=== PATIENT | female | born 1970 | race Caucasian/White ===

== ENCOUNTER 2019-09-24 06:18 | Inpatient (IN) ==
[2019-09-24] MEDS ORDERED: ASPIRIN ONE (06:36)
[2019-09-24] MEDS ORDERED: ASPIRIN PO ONE (06:39)
[2019-09-24 06:56] LABS: BASO% 0.8 % (0.0-0.8); EOS# 0.41 X1000 (0.0-0.7); EOS% 3.4 % (0.0-10.0); HEMATOCRIT 40.4 % (37.0-47.0); HEMOGLOBIN 13.2 g/dL (12.0-16.0); IMM GRAN# 0.02 X1000 (0.0-0.04); IMM GRAN% 0.2 % (0.0-0.5); LYMPH% 23.4 % (20.5-51.1); MCH 31.2 PG (27-31); MCHC 32.7 g/dL (33-37); MCV 95.5 FL (81-99); MONO# 0.85 X1000 (0.11-0.59); MONO% 7.1 % (1.7-9.3); MPV 10.8 FL (7.4-10.4); NEUT# 7.77 X1000 (1.4-6.5); NEUT% 65.1 % (42.2-75.2); PLT 293 X1000 (130-400); RBC 4.23 XMIL (4.2-5.4); WBC 11.95 X1000 (4.8-10.8)
--- NOTE | 2019-09-24 06:59 | EKG Report ---
Test Performed on : 09/24/2019 06:26:35 AM Test Reason : CP Blood Pressure : / mmHG Vent. Rate : 111 BPM Atrial Rate : 111 BPM P-R Int : 122 ms QRS Dur : 088 ms QT Int : 328 ms P-R-T Axes : 073 078 044 degrees QTc Int : 446 ms Sinus tachycardia. Nonspecific ST abnormality Abnormal ECG When compared with ECG of 24-SEP-2017 00:51, ST now depressed in Inferior leads Unconfirmed Result
[2019-09-24 07:00] LABS: INR 1.08; PROTIME 14.6 Seconds (11.0-16.0)
[2019-09-24 07:01] LABS: PTT 28.6 Seconds (22.3-41.8)
[2019-09-24 07:26] LABS: AGAP 20; ALKALINE PHOSPHATASE 94 U/L (32-104); BUN 29 mg/dL (8-22); CHLORIDE 101 mmol/L (98-107); CK PROFILE 35 U/L (24-173); COSMO 291; CREATININE 0.8 mg/dL (0.5-0.9); ESTIMATED GFR > 60; GLUCOSE 101 mg/dL (70-104); GOT 18 U/L (10-30); GPT 20 U/L (10-36); POTASSIUM 3.8 mmol/L (3.5-5.1); SODIUM 143 mmol/L (136-145); TCO2 22 mmol/L (25-35); TOTAL PROTEIN 8.4 g/dL (6.3-8.3)
--- NOTE | 2019-09-24 07:33 | Diag Imaging Result Doc PS360 ---
CHEST-2 VIEWS - 09/24/2019 INDICATION: CP COMPARISON: 09/24/2017 FINDINGS: The lungs are normally expanded and clear. Heart size and mediastinal contours are normal. No pneumothorax or pleural effusion. IMPRESSION: Negative exam. Electronically signed by Santiago Olivas 09/24/2019 7:30 AM
--- NOTE | 2019-09-24 08:52 | Diag Imaging Result Doc PS360 ---
EXAM: BA SWALLOW-ESOPHAGUS - 09/24/2019 HISTORY: dysphagia TECHNIQUE: Single contrast barium swallow. Exam performed using thin liquid barium. The fluoroscopy time is one minute 15 seconds. The radiation doses 778.5 cGy centimeters square. There are 7 images obtained. COMPARISON: None. FINDINGS: There is a filling defect in the distal esophagus near the gastroesophageal junction which largely obstructs the esophagus. Only a small amount barium passes beyond this. The filling defect is somewhat oval-shaped with lobulated, convex superior margin. Considerations include bolus of food and an unusual mass lesion. The presence or absence of stricture in this area is not discretely determined. IMPRESSION: Obstruction of distal esophagus near the gastroesophageal junction. Considerations include bolus of food and lobulated mass lesion. Electronically signed by Hilario Antonio 09/24/2019 8:50 AM
[2019-09-24] MEDS ORDERED: ATIVAN IV ONE (10:08)
[2019-09-24] MEDS ORDERED: ZOFRAN IV PRN (10:13)
[2019-09-24] MEDS ORDERED: NS 1,000 ML IV SCH (10:15)
[2019-09-24] MEDS ORDERED: PROTONIX IV SCH (10:15)
--- NOTE | 2019-09-24 10:49 | EKG Report ---
Test Performed on : 09/24/2019 09:22:57 AM Test Reason : cp #2 Blood Pressure : / mmHG Vent. Rate : 093 BPM Atrial Rate : 093 BPM P-R Int : 124 ms QRS Dur : 084 ms QT Int : 380 ms P-R-T Axes : 073 074 052 degrees QTc Int : 472 ms Normal sinus rhythm. Normal ECG When compared with ECG of 24-SEP-2019 06:26, (Unconfirmed) No significant change was found Unconfirmed Result
[2019-09-24 10:52] LABS: URINE SOURCE CATH
[2019-09-24 11:02] LABS: UR EPITHELIAL CELLS <10 /HPF (<10); URINE BACTERIA NEGATIVE /HPF; URINE RBC <10 /HPF (<10); URINE WBC <10 /HPF (<10)
[2019-09-24 11:28] LABS: BILIRUBIN URINE SMALL (NEGATIVE); COLOR YELLOW; GLUCOSE URINE NEGATIVE (NEGATIVE); TURBIDITY URINE CLEAR (CLEAR)
[2019-09-24 11:29] LABS: BLOOD URINE TRACE (NEGATIVE); KETONE URINE 80 mg/dL (NEGATIVE); LEUKOCYTES URINE NEGATIVE (NEGATIVE); NITRITE URINE NEGATIVE (NEGATIVE); PROTEIN URINE 50 mg/dL (NEGATIVE); SP GRAVITY URINE 1.034; UROBILINOGEN URINE 3 mg/dL (NORMAL)
[2019-09-24] MEDS: NS 1,000 ML IV SCH ×2 (12:04→14:32)
[2019-09-24] MEDS ORDERED: SODIUM CHLORIDE 0.9% INJ SCH (12:15)
[2019-09-24] MEDS: SODIUM CHLORIDE 0.9% INJ SCH (12:29)
[2019-09-24] MEDS: PROTONIX IV SCH (12:29)
[2019-09-24] MEDS: DILAUDID IV PRN ×3 (12:30→20:13)
[2019-09-24] MEDS ORDERED: M.V.I.-12 10 ML, FOLIC ACID 1 MG, MAGNESIUM SULFATE 1 GM, THIAMINE 100 MG in NS 1,000 ML IV SCH (13:00)
[2019-09-24] MEDS: ATIVAN IV PRN ×2 (14:31→17:59)
[2019-09-24] MEDS: MYCELEX TROCHE PO SCH ×3 (14:34→20:06)
--- NOTE | 2019-09-24 14:38 | Diag Imaging Result Doc PS360 ---
EXAM: CT ABD/PELVIS W/IV CONT ONLY - 09/24/2019 HISTORY: esophageal obstruction, barretts esophagus TECHNIQUE: CT abdomen/pelvis with intravenous contrast COMPARISON: None. FINDINGS: There is a 7 mm pleural-based nodular opacity versus peripheral atelectasis or scarring at the posterior lateral right lower lobe lung. There is an apparent circumferential wall thickening at the distal esophagus near the gastroesophageal junction. There is a filling defect in the distal esophagus just above the anterior wall thickening which may represent food bolus or possibly unusual pedunculated mass lesion. The gallbladder surgically absent. There is mild biliary ductal prominence which may relate to the postcholecystectomy state. There is no calcified common duct stone identified. There is no pancreatic mass or inflammation identified. There are no other substantial abnormalities of the liver, spleen, or adrenal glands identified. The bilateral kidneys enhance homogeneously. There is no hydronephrosis. There are no substantially enlarged lymph nodes identified. There is no evidence of bowel obstruction. There is mild colonic diverticulosis. There is no evidence of diverticulitis. There is no free air, free fluid, or abscess identified. Images of pelvis otherwise show postsurgical changes of partial hysterectomy. There is no abnormal pelvic mass or fluid collection identified. There is a Zhou catheter in urinary bladder. IMPRESSION: Circumferential wall thickening at distal esophagus near gastroesophageal junction. Filling defect in distal esophagus just above the area of wall thickening. This may relate to food bolus or possibly unusual pedunculated mass. Mild biliary ductal prominence which may relate to the postcholecystectomy state. Mild colonic diverticulosis. No evidence of diverticulitis. 7 mm pleural-based nodule versus peripheral atelectasis or scarring at posterior lateral right lower lobe lung. This exam was performed using automated exposure control, adjustment of mA or kV according to patient size, and/or use of iterative reconstruction technique. Electronically signed by Hilario Antonio 09/24/2019 2:36 PM
[2019-09-24] MEDS ORDERED: M.V.I.-12 10 ML, FOLIC ACID 1 MG, MAGNESIUM SULFATE 1 GM, THIAMINE 100 MG in NS 1,000 ML IV ONE (15:00)
--- NOTE | 2019-09-24 19:53 | HISTORY AND PHYSICAL ---
CHIEF COMPLAINT: Epigastric chest pain with vomiting. HISTORY OF PRESENT ILLNESS: This is a 49-year-old female with a history of [*]esophagus and ADHD. She presents to the emergency room complaining of epigastric and lower chest pain that radiates to her right shoulder, as well as vomiting and shortness of breath. She stated that approximately 9 days ago, she was eating steak and felt that a piece got stuck just in the epigastric area. After that, she had difficulty swallowing any chewed food. She stated that she was able to drink coffee in small amounts. During the next day or two, she was unable to eat solid food, but continued to be able to drink coffee. She states over the last four days, that she has been unable to eat or drink anything. No solid food will go down, and even if she drinks water or coffee, it feels like it goes down just to about her xiphoid and then she vomits it back up. She has had some blood tinges noted in the vomitus over the last two to three days. She denies any prior episodes, any prior dysphagia. Barium swallow was performed, which revealed obstruction of the distal esophagus near the gastroesophageal junction. Considerations include bolus of food and lobulated mass or lesion. PAST MEDICAL HISTORY: Up's esophagus, ADHD. PAST SURGICAL HISTORY: Right wrist surgery in 2015, appendectomy, cholecystectomy, hysterectomy, and cervical fusion. SOCIAL HISTORY: She smokes about a half a pack a day. She denies alcohol or illicit drug use. ALLERGIES: Penicillin and sulfa, which cause hives. HOME MEDICATIONS: Adderall, Prilosec, and temazepam. REVIEW OF SYSTEMS: Discussed with patient with pertinent positives stated in the HPI. She denied any syncope or dizziness, any palpitations, any constipation, diarrhea, black or bloody stool, any shortness of breath, cough, fever, chills, any hematuria, dysuria, frequency, urgency. PHYSICAL EXAMINATION: GENERAL: This is a 49-year-old female who is sitting up on the stretcher in the emergency room in no distress. VITAL SIGNS: Blood pressure is 126/81 with a heart rate of 86, respirations are 18, temperature is 98.3 degrees oral with room air saturations 96% to 98%. EYES: Pupils equal, round, react to light. EOMs are intact. Sclerae are anicteric. HEENT: Head is normocephalic, atraumatic. Mucous membranes are dry. Tongue is coated. NECK: Supple with trachea midline. CARDIOVASCULAR: Regular rate and rhythm. S1 and S2 appreciated. She has no lower extremity edema. Calves are nontender with peripheral pulses palpable x4 extremities. PULMONARY: Breath sounds are clear with no increased work of breathing noted. Chest rises and falls symmetric to respiration. Chest wall is nontender to palpation. GASTROINTESTINAL: Abdomen is soft, nondistended. She has some epigastric tenderness with bowel sounds in all 4 quadrants. GENITOURINARY: No CVA or suprapubic tenderness. NEUROLOGIC: Alert and oriented. SKIN: Warm and dry. LABORATORY AND DIAGNOSTIC DATA: 1. WBC is 11.9 with hemoglobin 13.2, hematocrit 40.4, and platelets of 293,000. Sodium 143, potassium 3.8, BUN 29, creatinine 0.8 with a glucose of 101. Urinalysis reveals trace blood with less than 10 microscopic red blood cells, white blood cells, or epithelial cells. 2. Chest x-ray reveals negative exam. 3. Barium swallow: Obstruction of distal esophagus near the gastroesophageal junction. Considerations include bolus of food and lobulated mass or lesion. ASSESSMENT: 1. Esophageal obstruction. 2. Leukocytosis. 3. Gastroesophageal reflux disease. 4. History of Up's esophagus. 5. Oral candidiasis. 6. Malnutrition in a patient who is unable to take in solid food over the last four to six days. PLAN: 1. The patient will be admitted to the medical-surgical floor. She will be NPO. We will give IV hydration, will give a liter over two hours. We will give a banana bag, start Protonix q.12 hours. We will give Dilaudid for pain, as well as Ativan for anxiety and dysphagia. Hopefully, we will be able to relax her esophagus. Mycelex troches 5 times a day. Use Zofran for nausea. Check a CBC and CMP in the morning. 2. I discussed the patient with Dr. Ascencio as well as Dr. Stahl. She will be scheduled for an EGD in the morning. We will transport the patient to [facility] for the procedure. If there are no complications, the plan is for her to return to [facility]. Of course, she will stay at [place] as needed depending on findings. 3. We will get a CT of the abdomen and pelvis with IV contrast. The plan was discussed with Dr. Carrasco. Further treatments pending hospital course. Dictated by RONALDO Birmingham for Dave Carrasco MD cc: RONALDO Birmingham MD
--- NOTE | 2019-09-24 20:19 | HISTORY AND PHYSICAL ---
CHIEF COMPLAINT: Patient presented to the hospital with chief complaint of chest pain and difficulty swallowing. HISTORY OF PRESENT ILLNESS: She is a very pleasant 49-year-old female who admits that she has a history of Up's esophagus I believe in 2013. She states that was diagnosed in [place]. She has moved up here and forgot to tell us when she moved. She knew that she needed to have a repeat EGD and has just never followed up. Notes that for the past 4 days she has been having grave difficulty swallowing even water. Notes that she has really not kept anything down for the past 4 days due to feeling like something is stuck in her throat. ALLERGIES: Penicillin and sulfa. MEDICATIONS: Adderall, temazepam, Prilosec. REVIEW OF SYSTEMS: The patient denies any fevers, chills, cough, congestion. Does have a headache, but she thinks that is due to not taking Adderall or caffeine for the past couple of days as well as not eating. She has been very anxious, nervous over her symptoms. She continues to smoke. She has had decreased appetite, vomiting. Denies diarrhea, constipation, melena, hematochezia, hemoptysis, or hematemesis. Denies any fevers, chills, blurred vision, change in vision. Denies any focalized numbness, tingling or weakness in her extremities. PAST MEDICAL HISTORY: Up's esophagus, chronic pain, rheumatoid arthritis, history of an appendectomy, cholecystectomy, hysterectomy. SOCIAL HISTORY: Patient continues to smoke a pack a day although has not smoked in the past couple days. Denies any alcohol or other illicit substance use. FAMILY HISTORY: Noncontributory. PHYSICAL EXAM: Temperature she is afebrile. Pulse is 86 to 110, respiratory rate 18, BP 126/81. GENERAL: Patient is pleasant. She is in no current respiratory distress, but she is anxious on appearance. HEENT: Normocephalic. NECK: Supple. CARDIOVASCULAR: Regular rate. CHEST: Clear, nonlabored no wheezing. ABDOMEN: Soft, nondistended, minimal epigastric tenderness. Positive bowel sounds . EXTREMITIES: Moves all extremities. No edema. NEUROLOGIC: No focal neurological changes. SKIN: Warm dry no rashes. ASSESSMENT: 1. Dysphagia with a filling defect in her distal esophagus. 2. Volume depletion. 3. Anxiety. 4. History of Up's esophagus. PLAN: We are going to admit patient to the hospital. We will ask GI to perform endoscopy. We will keep her n.p.o., pain control, IV fluids, and will follow. cc: Dave Carrasco MD
[2019-09-25] MEDS: PROTONIX IV SCH ×2 (00:04→12:33)
[2019-09-25] MEDS: DILAUDID IV PRN ×4 (00:16→12:32)
[2019-09-25] MEDS: ATIVAN IV PRN ×2 (05:47→12:55)
[2019-09-25 07:01] LABS: BASO# 0.09 X1000 (0.0-0.2); BASO% 1.4 % (0.0-0.8); EOS# 0.32 X1000 (0.0-0.7); EOS% 4.8 % (0.0-10.0); HEMATOCRIT 34.9 % (37.0-47.0); HEMOGLOBIN 10.9 g/dL (12.0-16.0); IMM GRAN# 0.01 X1000 (0.0-0.04); IMM GRAN% 0.2 % (0.0-0.5); LYMPH# 2.48 X1000 (1.2-3.4); LYMPH% 37.5 % (20.5-51.1); MCH 30.5 PG (27-31); MCHC 31.2 g/dL (33-37); MCV 97.8 FL (81-99); MONO# 0.52 X1000 (0.11-0.59); MONO% 7.9 % (1.7-9.3); MPV 11.1 FL (7.4-10.4); NEUT% 48.2 % (42.2-75.2); PLT 223 X1000 (130-400); RBC 3.57 XMIL (4.2-5.4); RDW 12.9 % (11.5-14.5); WBC 6.62 X1000 (4.8-10.8)
[2019-09-25 07:41] LABS: AGAP 11; ALKALINE PHOSPHATASE 74 U/L (32-104); BUN 18 mg/dL (8-22); CALCIUM 8.7 mg/dL (8.8-10.2); CHLORIDE 107 mmol/L (98-107); COSMO 284; CREATININE 0.6 mg/dL (0.5-0.9); ESTIMATED GFR > 60; GLUCOSE 83 mg/dL (70-104); GOT 18 U/L (10-30); GPT 16 U/L (10-36); POTASSIUM 4.2 mmol/L (3.5-5.1); SODIUM 142 mmol/L (136-145); TCO2 24 mmol/L (25-35)
[2019-09-25] MEDS: NS 1,000 ML IV SCH ×3 (08:02→20:12)
[2019-09-25] MEDS: MYCELEX TROCHE PO SCH ×5 (08:10→20:13)
[2019-09-25] MEDS ORDERED: ATIVAN IV ONE (08:57)
[2019-09-25] MEDS ORDERED: DIPRIVAN 1% ONE (09:56)
[2019-09-25] MEDS ORDERED: XYLOCAINE-MPF 2% ONE (09:57)
[2019-09-25] MEDS ORDERED: VERSED ONE (09:59)
[2019-09-25] MEDS ORDERED: LR 1,000 ML ONE (10:04)
--- NOTE | 2019-09-25 10:40 | ENDOSCOPY OPERATIVE NOTE ---
[facility] ENDOSCOPY OPERATIVE NOTE , EGD PROCEDURE REPORT EXAM DATE: 09/25/2019 PATIENT NAME: Natalia Storey MR#: [id number] BIRTHDATE: 1970 ATTENDING: Tello Stahl MD STATUS: inpatient LEGAL SUMMER INTERN: INDICATIONS: The patient is a 49 yr old female here for an EGD due to nausea, vomiting, history of e sophageal reflux, and dysphagia, pharyngeal-esophageal . PROCEDURE PERFORMED: EGD w/ biopsy MEDICATIONS: Per Anesthesia ESTIMATED BLOOD LOSS: None CONSENT: The patient understands the risks and benefits of the procedure and understands that these r isks include, but are not limited to: sedation, allergic reaction, infection, perforation and/or bleeding. Alternative means of evaluation and treatment include, among others: physical exam, x-rays, and/or surgical intervention. The patient elects to proceed with this endoscopic procedure. DESCRIPTION OF PROCEDURE: During pre-op preparation period all mechanical and medical equipment was c hecked for proper function. Hand hygiene and appropriate measures for infection prevention was taken. After the risks, benefits and alternatives of the procedure were thoroughly explained, Informed consent was verified, confirmed and timeout was successfully executed by the treatment team. The patient was anesthetized with topical anesthesia and the [id number]-[id number] ([id number]) endoscope was introduced through the mouth and advanced to the second portion of the duoden um. Retroflexion was performed in the stomach and revealed no abnormalities. The gastroscope was then slowly withdraw n and removed. The patient's toleration of the procedure was excellent. ESOPHAGUS: Esophagitis dessicans (sloughing mucosa) was found seen in the distal third of esophagus. No stricture, mass, or obvious Up's seen. Random biopsies were obtained with cold biopsy forceps. STOMACH: Mild gastritis (inflammation) was found in the gastric antrum. DUODENUM: The duodenum was normal. ADVERSE EVENTS: There were no complications. IMPRESSIONS: Esophagitis dessicans (sloughing mucosa) was found seen in the distal third of esoph alana. No stricture, mass, or obvious Up's seen. Random biopsies were obtained with cold biopsy forceps RECOMMENDATIONS: 1. Await biopsy results 2. Omeprazole 40mg PO BID for 3 months Avoid NSAIDs Advance diet as tolerated Dysphagia precautions Follow-up with primary GI in 4-6 weeks Repeat EGD in 2-3 months REPEAT EXAM: Return in 3 months for EGD. Tello Stahl MD eSigned: Tello Stahl MD 09/25/2019 10:40 AM CC: CPT CODES: 84419 Upper gastrointestinal endoscopy including esophagus, stomach, and either the du odenum and/or jejunum as appropriate; with biopsy, single or multiple ICD CODES: 787.02 Nausea 787.03 Vomiting,unspecified V12.79 Personal history of other specified digestive system diseases 787.20 Dysphagia,unspecified 535.50 Unspecified gastritis and gastroduodenitis (without hemorrhage) The ICD and CPT codes recommended by this software are interpretations from the data that the [facility] staff has captured with the software. The verification of the translation of this report to the ICD and CPT co bela and modifiers is the sole responsibility of the health care institution and practicing physician where this report was generated. [employer] will not be held responsible for the validity of the ICD and CPT codes i ncluded on this report. [employer] assumes no liability for data contained or not contained herein. CPT is a registered tra [employer] of the [employer]. PATIENT NAME: Natalia Stoery MR#: [id number]
--- NOTE | 2019-09-25 10:54 | PROGRESS NOTE ---
DATE: 09/25/2019 SUBJECTIVE: Patient notes she is still having lots of difficulty swallowing. States that she is very anxious and scared over the ambulance ride. Notes that she has not been in an ambulance since her son . PHYSICAL EXAMINATION: Vital Signs: Temperature 97.8 pulse 70, respiratory 18, BP 122/75. General: Patient is awake, alert. She is in no distress although she is anxious. HEENT: Normocephalic. Neck: Supple. Cardiovascular: Regular rate. Chest: Clear. Abdomen: Soft. Extremities: Moves all extremities. ASSESSMENT: 1. Acute anxiety attack. We will use Ativan for her ambulance ride. 2. Esophageal obstruction. 3. Leukocytosis. 4. Chronic reflux. 5. History of Up's without follow-up. PLAN: We are going to continue patient in the hospital. Discussed with her EGD, biopsy and dilatation. She will transfer to [facility] for Dr. Stahl to perform procedure and we will determine next action after such. cc: Dave Carrasco MD
[2019-09-25] MEDS: SODIUM CHLORIDE 0.9% INJ SCH (12:33)
[2019-09-25] MEDS: NICODERM PATCH TD PRN (17:48)
[2019-09-25] MEDS: ATARAX PO PRN (17:48)
[2019-09-25] MEDS ORDERED: CARAFATE LIQUID PO SCH (20:00)
[2019-09-25] MEDS: RESTORIL PO SCH (20:12)
[2019-09-25] MEDS: PRILOSEC PO SCH (20:13)
[2019-09-25] MEDS ORDERED: ADDERALL PO SCH (21:00)
[2019-09-26] MEDS: NS 1,000 ML IV SCH ×3 (06:00→21:34)
[2019-09-26] MEDS: PRILOSEC PO SCH ×2 (06:00→21:20)
[2019-09-26] MEDS: MYCELEX TROCHE PO SCH ×5 (09:44→21:19)
[2019-09-26] MEDS: ADDERALL PO SCH ×2 (09:44→09:58)
[2019-09-26] MEDS ORDERED: NS 1,000 ML IV SCH (09:45)
[2019-09-26] MEDS: CARAFATE LIQUID PO SCH ×4 (09:55→21:20)
[2019-09-26] MEDS: ATARAX PO PRN ×2 (09:56→17:56)
[2019-09-26] MEDS: REGLAN PO SCH ×2 (11:24→21:19)
[2019-09-26] MEDS: MYRBETRIQ E.R. PO SCH (11:24)
[2019-09-26] MEDS: NICODERM PATCH TD PRN (17:56)
[2019-09-26] MEDS ORDERED: NORCO-5 PO PRN (18:30)
[2019-09-26] MEDS ORDERED: RESTORIL PO SCH (21:00)
[2019-09-26] MEDS: RESTORIL PO SCH (21:20)
--- NOTE | 2019-09-27 00:21 | PROGRESS NOTE ---
DATE: 09/26/2019 SUBJECTIVE: Patient notes overall she is feeling okay. Still having difficulty swallowing. Notes she has been very stressed, anxious, nervous. She has been gagging at times when she attempts to drink. Still having epigastric pain. Denies fevers, chills, hematochezia, melena, hemoptysis. PHYSICAL EXAMINATION: Vital Signs: Temperature 98 degrees, pulse 74, respiratory rate 18, BP 133/84. General: Patient is pleasant. She is in no distress. HEENT: Normocephalic. Neck: Supple. Cardiovascular: Regular rate. Chest: Clear. Abdomen: Soft. Extremities: Moves all extremities. ASSESSMENT: 1. Esophageal obstruction, improved. She had EGD that demonstrated esophagitis. Thankfully, no mass. 2. History of Up's esophagus. Biopsies still pending. 3. Chronic reflux. 4. Leukocytosis. 5. Malnutrition. PLAN: We are going to continue patient in the hospital. Continue IV fluids. Continue to encourage oral intake and we will continue counseling for her anxiety. Home when she is able to to drink better cc: Dave Carrasco MD [facility]
[2019-09-27] MEDS: NS 1,000 ML IV SCH (05:18)
[2019-09-27 05:21] VITALS: BP 122/75
[2019-09-27] MEDS: PRILOSEC PO SCH ×2 (05:58→06:17)
[2019-09-27] MEDS: ATARAX PO PRN (08:21)
[2019-09-27] MEDS: REGLAN PO SCH (08:21)
[2019-09-27] MEDS: CARAFATE LIQUID PO SCH ×2 (08:21→12:54)
[2019-09-27] MEDS: ADDERALL PO SCH (08:21)
[2019-09-27] MEDS: MYRBETRIQ E.R. PO SCH (08:21)
[2019-09-27] MEDS: MYCELEX TROCHE PO SCH ×2 (12:54)
--- NOTE | 2019-09-28 09:35 | DISCHARGE SUMMARY ---
ADMISSION DATE: 09/24/2019 DISCHARGE DATE: 09/27/2019 DIAGNOSES: 1. Gastroesophageal reflux disease. 2. Presumed esophageal obstruction. Esophagogastroduodenoscopy revealed esophagitis dissecans with no stricture, mass, or obvious Up's seen. Biopsies are pending. 3. Leukocytosis, resolved. 4. Oral candidiasis. 5. Malnutrition. DIAGNOSTICS: 1. Barium swallow revealed obstruction of distal esophagus near the GE junction. Considerations include bolus of food and lobulated mass or lesion. 2. Chest x-ray revealed negative exam. Lungs are normally expanded and clear. Heart size and mediastinal contours are normal. 3. CT of the abdomen and pelvis: Circumferential wall thickening at the distal esophagus near the GE junction. Filling defect in the distal esophagus just above the area of wall thickening that may relate to food bolus or possibly unusual pedunculated mass. Mild biliary ductal prominence, which may relate to post cholecystectomy state. Mild colonic diverticulosis. No evidence of diverticulitis. HOSPITAL COURSE: Ms. Storey presented to the emergency room with epigastric pain and vomiting. She reported being told that she had Up's esophagus about 6 years ago. She has had no followup. She stated that somewhere around 09/17/2019 or 09/18/2019, she was eating and swallowed a piece of steak. She felt that it got stuck, and she had increasing difficulty swallowing solid food, to the point that she stopped attempting to eat solid food about 5 days prior. She was able to drink liquids until the last 2 to 3 days, and even drinking those made her vomit and hurt, so she stopped. Barium swallow was performed in the emergency room as stated above. She was made n.p.o., given IV hydration along with a banana bag. PPIs were given IV. She was found to have oral candidiasis, for which she was given Mycelex troches. She underwent EGD on 09/25/2019, which revealed esophagitis dissecans in the distal third of the esophagus. No stricture, mass, or obvious Up's were seen. Biopsies were obtained and are still pending. After biopsy, diet was prescribed. She was started on Carafate, along with Prilosec b.i.d. She was advanced to a GI soft diet, was able to eat 100% of the diet, and thankfully is ready for discharge. DISCHARGE PHYSICAL EXAMINATION: Vital Signs: Blood pressure is 122/75, with a heart rate of 68, respirations are 18, temperature is 98 degrees, with room air saturations 100%. Cardiovascular: Regular rate and rhythm. S1 and S2 are appreciated. Pulmonary: Breath sounds are clear with no increased work of breathing noted. Chest rises and falls symmetrically with respiration. Chest wall is nontender to palpation. Gastrointestinal: Abdomen is soft, nontender, nondistended, with bowel sounds in all 4 quadrants. Neurologic: She is alert and oriented x3. Extremities: No clubbing, cyanosis, or edema. Calves are nontender bilaterally. DISCHARGE MEDICATIONS: 1. Reglan 5 mg p.o. b.i.d. 2. [place] 5/325 every 8 hours p.r.n. 3. Mycelex troches 5 times a day. She has been instructed to suck on these and allow them to dissolve slowly. 4. Carafate 1 gram tablets 4 times a day. 5. Hydroxyzine 25 mg p.o. every 8 hours. 6. Omeprazole 20 mg p.o. daily. 7. Myrbetriq 25 mg p.o. daily. 8. Adderall 20 mg p.o. daily. 9. Restoril 30 mg p.o. at bedtime FOLLOWUP: 1. Dr. Dave Carrasco. She is to call the office on Saturday and schedule an appointment to be seen in the next 1 [address] Stalh in 4 to 6 weeks. She needs to call Saturday to schedule an appointment. She will need a repeat EGD in 2 to 3 months. DISCHARGE INSTRUCTIONS: The patient is to avoid all NSAIDs. This was discussed with the patient per Dr. Stahl as well as myself. DISPOSITION: She is being discharged home in stable condition with family members. TIME SPENT: This is a greater than 30-minute discharge. Dictated by RONALDO Birmingham for Dave Carrasco MD cc: RONALDO Birmingham MD
--- NOTE | 2019-09-28 12:02 | DISCHARGE SUMMARY ---
ADMISSION DATE: 09/24/2019 DISCHARGE DATE: 09/27/2019 ADDENDUM: Patient seen and examined by myself. Full note dictated and discussed with nurse practitioner. On discharge, the patient had an EGD that thankfully did not show any mass. She is starting to drink a little bit better. She is keeping down oral, although is still not really tolerating solids. Overall, she has improved. We will discharge her home on Carafate, Reglan, and she will follow up in the office in 1 week. cc: Dave Carrasco MD
== END 2019-09-27 13:23 | disposition home or self-care (01) | DRG 392 ==
LOC: P.ED 06:18 → P.MEDSURG 12:22
PROVIDERS: ATTEND Family Medicine